=== PATIENT | male | born 1965 | race Caucasian/White ===

== ENCOUNTER 2022-05-15 16:05 | Inpatient (IN) | payer MEDICAID ==
[~2022-05-15] VITALS: Ht 167.6 cm; Wt 74.8 kg
[2022-05-15 16:07] VITALS: BP 133/88
[2022-05-15] MEDS ORDERED: NITROGLYCERIN 0.4 MG TAB SL ONE (16:25)
--- NOTE | 2022-05-15 16:45 | NUR ---
Note tunde in EDM - 05/15/22 at 1707 by MEDEB 56M RYAN from home with c/o CP, S) since this morning. Pt reports chest pain began mildly and progressively worsened throughout the day. Pt states chest pain is intermittent, pressure like, 5/10 on pain scale.
--- NOTE | 2022-05-15 16:45 | NUR ---
56M BIBA from home with c/o CP, SOB and cough since this morning. Pt reports chest pain began mildly and progressively worsened throughout the day. Pt states chest pain is intermittent, pressure like, 5/10 on pain scale. Pt reports cough and SOB provoked by chest pain. Pt denies fevers, chills, N/V/D, or meds for chest pain. Pt changed into gown and placed on bedside monitor, bed at lowest position, side rails x2.
--- NOTE | 2022-05-15 17:00 | NUR ---
SWAB COLLECTED AND WALKED TO LAB.
[2022-05-15 17:06] LABS: BASOPHILS # (AUTO) 0.1 K/uL (0.00-0.22); BASOPHILS % (AUTO) 1.3 % (0.0-2.0); EOSINOPHILS # (AUTO) 0.3 K/uL (0-0.4); EOSINOPHILS % (AUTO) 3.9 % (0.0-4.0); HEMATOCRIT 35.8 % (36-52); HEMOGLOBIN 11.5 g/dL (12.0-18.0); LYMPHOCYTES % (AUTO) 11.3 % (20.5-51.1); MEAN CORPUSCULAR HEMOGLOBIN 28 pg (27-31); MEAN CORPUSCULAR HGB CONC 32 g/dL (33-37); MEAN CORPUSCULAR VOLUME 85.4 fL (80-94); MONOCYTES # (AUTO) 1.2 K/uL (0.8-1.0); NEUTROPHILS # (AUTO) 6.2 K/uL (1.8-7.7); NEUTROPHILS % (AUTO) 69.5 % (42.2-75.2); PLATELET COUNT (AUTO) 269 K/uL (140-450); RED BLOOD CELL COUNT(AUTO) 4.19 MIL/uL (4.20-6.10); RED CELL DISTRIBUTION WIDTH 20.3 % (11.6-13.7); WHITE BLOOD COUNT (AUTO) 8.9 K/uL (4.8-10.8)
--- NOTE | 2022-05-15 17:49 | NUR ---
Urine collected and walked to lab.
[2022-05-15 17:52] LABS: ALBUMIN 3.6 g/dL (3.4-5.0); ANION GAP 14.9 (8-16); CARBON DIOXIDE 29.1 mmol/L (21-32); TOTAL BILIRUBIN 1.3 mg/dL (0.0-1.0)
[2022-05-15] MEDS ORDERED: POTASSIUM CHLORIDE 10 MEQ TABER PO ONE (18:05)
[2022-05-15] MEDS ORDERED: FUROSEMIDE 40 MG/4 ML VIAL IVP ONE (18:05)
[2022-05-15 18:12] LABS: BARBITURATE, URINE NEGATIVE ng/ml (NEG <=200); BENZODIAZEPINE, URINE NEGATIVE ng/mL (NEG <=200); CANNABINOID, URINE NEGATIVE ng/mL (NEG <=50); COCAINE, URINE NEGATIVE ng/mL (NEG <=300); OPIATE, URINE NEGATIVE ng/mL (NEG <=2000); PHENCYCLIDINE SCREEN,URINE NEGATIVE ng/mL (NEG <=25)
--- NOTE | 2022-05-15 19:15 | NUR ---
Pt report given to LEÓN Henry. Transfer of care at this time.
[2022-05-15] MEDS ORDERED: SPIR25TA20 PO (19:26)
[2022-05-15] MEDS ORDERED: APIX5TAB PO (19:26)
[2022-05-15] MEDS ORDERED: ATOR40TA PO (19:26)
[2022-05-15] MEDS ORDERED: ASPI-1822 PO (19:26)
[2022-05-15] MEDS ORDERED: FURO-570 PO (19:26)
[2022-05-15] MEDS ORDERED: CARV3.12 PO (19:26)
[2022-05-15] MEDS ORDERED: ALLO100T21 PO (19:26)
[2022-05-15] MEDS ORDERED: LISI-486 PO (19:28)
[2022-05-15] MEDS ORDERED: FLUT1BLS8 IH (19:32)
[2022-05-15] MEDS ORDERED: PRON INH (19:32)
--- NOTE | 2022-05-15 19:47 | NUR ---
Patient lying in bed, A/Ox4, chest rise and fall symmetrical, no c/o pain or s/s of distress.
[2022-05-15] MEDS ORDERED: ALBUTEROL SULFATE/IPRATROPIU 3 ML SOL IH PRN (20:20)
[2022-05-15] MEDS ORDERED: ALBUTEROL SULFATE/IPRATROPIU 3 ML SOL IH ONE (20:21)
--- NOTE | 2022-05-15 21:10 | NUR ---
Patient lying in bed, A/Ox4, chest rise and fall symmetrical, no c/o pain or s/s of distress.
--- NOTE | 2022-05-15 22:41 | NUR ---
Patient urinated 500 mL, yellow clear.
--- NOTE | 2022-05-15 22:59 | NUR ---
Dr. Adiel Murguia verbally informed via telephone that patient wants to leave AMA. Dr. Adiel Murguia stated that he reveiwed patient's chart and patient is "ok to leave."
--- NOTE | 2022-05-15 23:05 | NUR ---
Patient does not wish to proceed with medical care recommended by Dr. Adiel Murguia. Patient given information related to possible complications, up to and including , which could occur as a result of leaving hospital at this time. Patient verbalizes understanding of risks involved leaving against medical advice. Patient has signed AMA form.
[2022-05-15 23:06] VITALS: BP 118/72
[2022-05-16] MEDS ORDERED: ALBUTEROL SULFATE/IPRATROPIU 3 ML SOL IH SCH (01:00)
== END 2022-05-15 23:05 | disposition left against medical advice (07) | DRG 194 ==
LOC: MED 16:05 → MTU 19:18
PROVIDERS: ADMIT Hospitalist; ATTEND Hospitalist
DX: I11.0 Hypertensive heart disease with heart failure (principal); J44.9 Chronic obstructive pulmonary disease, unspecified; Z20.822 Contact with and (suspected) exposure to COVID-19; I50.9 Heart failure, unspecified; Z53.29 Procedure and treatment not carried out because of patient's decision for other reasons; Z88.0 Allergy status to penicillin; Z86.718 Personal history of other venous thrombosis and embolism
CPT/HCPCS: 36415; 71045; 80053; 80305; 83735; 83880; 84484; 85025; 93005; 99291; J1940; Q0092